=== PATIENT | female | born 1985 | race Caucasian/White ===

== ENCOUNTER 2023-01-18 10:36 | Emergency (ER) | payer BC ==
[~2023-01-18] VITALS: Ht 167.6 cm; Wt 82.0 kg
[2023-01-18 10:39] VITALS: BP 114/71
== END 2023-01-18 12:56 | disposition left against medical advice (07) ==
LOC: ER 10:54
DX: R55 Syncope and collapse (principal); Z53.21 Procedure and treatment not carried out due to patient leaving prior to being seen by health care provider
CPT/HCPCS: 99281; 99283